=== PATIENT | female | born 2000 | race Caucasian/White ===

== ENCOUNTER 2023-12-28 08:50 | Inpatient (IN) | payer OTHER ==
[~2023-12-28] VITALS: Ht 157.5 cm; Wt 65.8 kg
[2023-12-28 10:00] VITALS: BP 101/62; PULSE 81; RESP 18; TEMP 98; O2SAT 100
[2023-12-28 10:48] LABS: BASOPHILS % (AUTO) 0.6 % (0.0-2.0); EOSINOPHILS % (AUTO) 0.5 % (0.0-4.0); LYMPHOCYTES # (AUTO) 1.4 K/uL (2.5-16.5); LYMPHOCYTES % (AUTO) 21.1 % (20.5-51.1); MEAN CORPUSCULAR HEMOGLOBIN 19 pg (27-31); MEAN CORPUSCULAR HGB CONC 30 g/dL (33-37); MEAN CORPUSCULAR VOLUME 61.2 fL (80-94); MONOCYTES # (AUTO) 0.4 K/uL (0.8-1.0); MONOCYTES % (AUTO) 5.3 % (1.7-9.3); NEUTROPHILS # (AUTO) 4.9 K/uL (1.8-7.7); NEUTROPHILS % (AUTO) 72.5 % (42.2-75.2); PLATELET COUNT (AUTO) 291 K/uL (140-450); RED BLOOD CELL COUNT(AUTO) 3.19 MIL/uL (4.20-5.40); RED CELL DISTRIBUTION WIDTH 18.8 % (11.6-13.7); WHITE BLOOD COUNT (AUTO) 6.8 K/uL (4.8-10.8)
[2023-12-28 10:51] LABS: APPEARANCE,URINE CLEAR (CLEAR); BILIRUBIN,URINE NEGATIVE (NEGATIVE); BLOOD, URINE 1+ (NEGATIVE); COLOR,URINE YELLOW (YELLOW); LEUKOCYTE ESTERASE ,URINE TRACE (NEGATIVE); NITRITE, URINE NEGATIVE (NEGATIVE); PH,URINE 7.5 (5.0-9.0); PROTEIN,URINE 1+ (NEGATIVE); UGLUCOSE NEGATIVE (NEGATIVE)
[2023-12-28 11:03] LABS: HEMATOCRIT 19.5 % (36-48); HEMOGLOBIN 5.9 g/dL (12.0-16.0)
[2023-12-28 11:32] LABS: ALBUMIN 2.5 g/dL (3.4-5.0); ANION GAP 13.4 (8-16); CARBON DIOXIDE 22.1 mmol/L (21-32); CREATININE 0.5 mg/dL (0.6-1.3); POTASSIUM 3.5 mmol/L (3.5-5.1); TOTAL BILIRUBIN 0.6 mg/dL (0.0-1.0); TOTAL PROTEIN, SERUM 6.5 g/dL (6.4-8.2)
[2023-12-28 11:36] LABS: INR 0.94 (0.8-1.2); PARTIAL THROMBOPLASTIN TIME 22.7 secs (22-35.6); PROTHROMBIN TIME 9.9 secs (10.8-13.4)
[2023-12-28] MEDS ORDERED: CARBOPROST 250 MCG/ML AMP IM PRN (11:40)
[2023-12-28] MEDS ORDERED: METHYLERGONOVINE 0.2 MG/ML AMP IM PRN (11:40)
[2023-12-28] MEDS ORDERED: LACTATED RINGERS 500 ML IV ONE (11:40)
[2023-12-28 11:49] LABS: BACTERIA,URINE 2+ /HPF (None Seen); MUCUS,URINE 2+ /LPF (None Seen); SQUAMOUS EPITHELIAL CELL,UR 4-10 (MOD) /LPF (0-3 (FEW)); YEAST,URINE Few /HPF (None Seen)
[2023-12-28] MEDS ORDERED: AMPICILLIN 2,000 MG VIAL ONE (11:57)
[2023-12-28] MEDS: LACTATED RINGERS 1,000 ML IV SCH (12:00)
[2023-12-28] MEDS: AMPICILLIN 2,000 MG in NACL 0.9% MINI-BAG PLUS 100 ML IV SCH (12:01)
[2023-12-28] MEDS: AMPICILLIN 1,000 MG in NACL 0.9% MINI-BAG PLUS 50 ML IV SCH (16:09)
[2023-12-29] MEDS ORDERED: AMPICILLIN 1,000 MG VIAL ONE ×4 (01:07→13:01)
[2023-12-29] MEDS: AMPICILLIN 1,000 MG VIAL ONE ×3 (05:23→12:52)
[2023-12-29 07:11] LABS: BASOPHILS # (AUTO) 0.1 K/uL (0.00-0.22); BASOPHILS % (AUTO) 0.6 % (0.0-2.0); EOSINOPHILS # (AUTO) 0.1 K/uL (0-0.4); EOSINOPHILS % (AUTO) 1.1 % (0.0-4.0); HEMATOCRIT 30.7 % (36-48); HEMOGLOBIN 9.7 g/dL (12.0-16.0); LYMPHOCYTES # (AUTO) 2.5 K/uL (2.5-16.5); LYMPHOCYTES % (AUTO) 25.7 % (20.5-51.1); MEAN CORPUSCULAR HEMOGLOBIN 22 pg (27-31); MEAN CORPUSCULAR HGB CONC 32 g/dL (33-37); MEAN CORPUSCULAR VOLUME 69.1 fL (80-94); MONOCYTES # (AUTO) 0.7 K/uL (0.8-1.0); MONOCYTES % (AUTO) 7.7 % (1.7-9.3); NEUTROPHILS # (AUTO) 6.3 K/uL (1.8-7.7); NEUTROPHILS % (AUTO) 64.9 % (42.2-75.2); PLATELET COUNT (AUTO) 267 K/uL (140-450); RED BLOOD CELL COUNT(AUTO) 4.43 MIL/uL (4.20-5.40); RED CELL DISTRIBUTION WIDTH 25.6 % (11.6-13.7); WHITE BLOOD COUNT (AUTO) 9.7 K/uL (4.8-10.8)
[2023-12-29] MEDS ORDERED: ONDANSETRON 4 MG/2 ML VIAL IVP PRN (07:25)
[2023-12-29 07:30] VITALS: BP 107/73; PULSE 60; RESP 18
[2023-12-29] MEDS: ONDANSETRON 4 MG/2 ML VIAL ONE (07:30)
[2023-12-29] MEDS: MORPHINE SULFATE 10 MG/ML VIAL IVP PRN (07:30)
[2023-12-29] MEDS ORDERED: TERBUTALINE 1 MG/ML VIAL SUBQ SCH (09:20)
[2023-12-29] MEDS ORDERED: TERBUTALINE 1 MG/ML VIAL SUBQ ONE (09:28)
[2023-12-29] MEDS ORDERED: ROPIVACAINE 0.2%/NS PREMIX 200 ML EPI ONE (09:51)
[2023-12-29] MEDS ORDERED: OXYTOCIN/0.9 % SODIUM CHLORIDE 500 ML IV ONE (13:23)
[2023-12-29] MEDS ORDERED: OXYTOCIN/0.9 % SODIUM CHLORIDE 500 ML IV SCH (16:05)
[2023-12-29] MEDS ORDERED: OXYTOCIN 10 UNITS/ML VIAL IM PRN (17:10)
[2023-12-29] MEDS ORDERED: BENZOCAINE/MENTHOL 20%-0.5% 60 GM CAN TP PRN (17:10)
[2023-12-29] MEDS ORDERED: SODIUM PHOSPHATE 118 ML ENEM RC PRN (17:10)
[2023-12-29] MEDS ORDERED: TEMAZEPAM 15 MG CAP PO PRN (17:10)
[2023-12-29] MEDS ORDERED: METHYLERGONOVINE 0.2 MG/ML AMP IM PRN (17:10)
[2023-12-29] MEDS ORDERED: MEASLES, MUMPS, AND RUBELLA 1 VIAL SQVAC ONE (17:10)
[2023-12-29] MEDS ORDERED: METHYLERGONOVINE 0.2 MG TAB PO PRN (17:10)
[2023-12-29] MEDS ORDERED: MEASLES, MUMPS, AND RUBELLA 1 VIAL SQVAC PRN (17:20)
[2023-12-29] MEDS: IBUPROFEN 800 MG TAB PO PRN (20:18)
[2023-12-29] MEDS: DOCUSATE SOD/SENNA 50/8.6 MG 1 TAB PO SCH (21:00)
[2023-12-30 06:49] LABS: HEMATOCRIT 26.6 % (36-48); HEMOGLOBIN 8.4 g/dL (12.0-16.0)
[2023-12-30] MEDS: oxyCODONE/APAP 5/325 MG 1 TAB TAB PO PRN (11:24)
== END 2023-12-31 13:15 | disposition home or self-care (01) | DRG 560 ==
LOC: MLD 08:50 → OBSVTOIN 14:00 → MFCC 12-29 17:37
PROVIDERS: ADMIT Obstetrics & Gynecology; ATTEND Obstetrics & Gynecology
PROC: 30233N1 Transfusion of Nonautologous Red Blood Cells into Peripheral Vein, Percutaneous Approach (ICD-10-PCS; 2023-12-28)
PROC: 10E0XZZ Delivery of Products of Conception, External Approach (ICD-10-PCS; principal; 2023-12-29)
PROC: 3E0R3BZ Introduction of Anesthetic Agent into Spinal Canal, Percutaneous Approach (ICD-10-PCS; 2023-12-29)
PROC: 00HU33Z Insertion of Infusion Device into Spinal Canal, Percutaneous Approach (ICD-10-PCS; 2023-12-29)
DX: O99.02 Anemia complicating childbirth (principal); Z37.0 Single live birth; D64.9 Anemia, unspecified; O42.02 Full-term premature rupture of membranes, onset of labor within 24 hours of rupture; Z3A.37 37 weeks gestation of pregnancy
CPT/HCPCS: 36415; 51702; 59409; 76805; 80053; 81001; 85018; 85025; 85610; 85730; 86592; 86886; 86900; 86901; 86920; 87086; 87653-90; J0290; J2270; J2405; J2590; J2795; J3105; P9016; Q0092